=== PATIENT | female | born 1985 | race African-American/Black ===

== ENCOUNTER 2020-12-15 14:31 | Emergency (ER) | payer OTHER ==
[~2020-12-15] VITALS: Ht 182.9 cm; Wt 75.0 kg
--- NOTE | 2020-12-15 15:02 | PHYS DOC ---
Past History Past Medical History: No Pertinent History Past Surgical History: Other Additional Past Surgical Histo: LEFT AND RIGHT ACL Alcohol Use: None General Adult EDM: Chief Complaint: KNEE INJURY HPI: HPI: 34-year-old female presents via EMS with right knee injury. The patient states that she believes the her knee dislocated. She did was stand up and start to walk and turn to the right. Her knee felt like it popped out and she collapsed to the floor. She is not sure if her patella dislocated or if it was the knee joint itself. The patient has had this happen a few times since having her ACL replaced in 2009. It is always when she is turning to the right. 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 Her colleagues to help get her to her feet before EMS arrived and she felt like that is when it went back in place. She has not had Ortho follow-up on MRI since 2010. She was able to complete in [employer] physical fitness test yesterday while wearing her brace. She was not wearing her brace today. She denies any other injuries or complaints at this time. Review of Systems: Review of Systems: Constitutional: Denies fever or chills Eyes: Denies change in visual acuity HENT: Denies nasal congestion or sore throat Respiratory: Denies cough or shortness of breath Cardiovascular: Denies chest pain or edema GI: Denies abdominal pain, nausea, vomiting, bloody stools or diarrhea : Denies dysuria Musculoskeletal: Right knee pain Integument: Denies rash Neurologic: Denies headache, focal weakness or sensory changes Endocrine: Denies polyuria or polydipsia Lymphatic: Denies swollen glands Psychiatric: Denies depression or anxiety Allergies: Allergies: Allergies Coded Allergies Type Severity Reaction Last Updated Verified No Known Drug Allergies 12/15/20 No Physical Exam: PE: Constitutional: Well developed, well nourished, no acute distress, non-toxic appearance. [] HENT: Normocephalic, atraumatic, bilateral external ears normal, oropharynx moist, no oral exudates, nose normal. [] Eyes: PERRLA, EOMI, conjunctiva normal, no discharge. [] Neck: Normal range of motion, no tenderness, supple, no stridor. [] Cardiovascular:Heart rate regular rhythm, no murmur [] Lungs & Thorax: Bilateral breath sounds clear to auscultation [] Abdomen: Bowel sounds normal, soft, no tenderness, no masses, no pulsatile masses. [] Skin: Warm, dry, no erythema, no rash. [] Back: No tenderness, no CVA tenderness. [] Extremities: Swelling of the right knee, tenderness along the medial collateral ligament. Anterior and posterior drawer deferred due to pain. [] Neurologic: Alert and oriented X 3, normal motor function, normal sensory function, no focal deficits noted. [] Psychologic: Affect normal, judgement normal, mood normal. [] Current Patient Data: Vital Signs: Vital Signs Date Time Temp Pulse Resp B/P (MAP) Pulse Ox O2 Delivery O2 Flow Rate FiO2 12/15/20 14:35 98.1 68 20 129/87 (101) 100 Room Air EKG: EKG: [] Radiology/Procedures: Radiology/Procedures: [] Impressions: EXAM: Right knee, 4 views. HISTORY: Pain. COMPARISON: None. FINDINGS: 4 views of the right knee are obtained. There are findings consistent with anterior cruciate ligament surgery. There is no fracture, dislocation or subluxation. There is no joint effusion. IMPRESSION: 1. Findings consistent with ACL repair. 2. No acute osseous finding. Electronically signed by: Mery Oliveira MD (12/15/2020 3:15 PM) [id number] DICTATED AND SIGNED BY: MERY OLIVEIRA MD DATE: 12/15/20 1514 CC: CARMEN ELLINGTON DO ~MTH0 0 Heart Score: C/O Chest Pain: N/A Risk Factors: Risk Factors: DM, Current or recent (<one month) smoker, HTN, HLP, family history of CAD, obesity. Risk Scores: Score 0 - 3: 2.5% MACE over next 6 weeks - Discharge Home Score 4 - 6: 20.3% MACE over next 6 weeks - Admit for Clinical Observation Score 7 - 10: 72.7% MACE over next 6 weeks - Early Invasive Strategies Course & Med Decision Making: Course & Med Decision Making Pertinent Labs and Imaging studies reviewed. (See chart for details) Patient's x-ray is negative for acute findings. I have discussed with the patient that she should follow-up with orthopedics and have further evaluation of this knee. She has had a significant repair in the past and no follow-up imaging in several years. Given the fact that she has had several of these episodes, I believe repeat evaluation by an expert is warranted. At the least I suspect she has a medial collateral ligament strain. I cannot confirm or deny that she is having some part of her joint dislocate and relocate. I have offered the patient pain medication, but she is very hesitant to use narcotics as she is a single mom. She is stable for discharge at this time. [] Yosion Disclaimer: Shell Disclaimer: This electronic medical record was generated, in whole or in part, using a voice recognition dictation system. Departure Departure: Impression: Primary Impression: Medial collateral ligament sprain of knee Qualified Codes: S83.411A - Sprain of medial collateral ligament of right knee, initial encounter Disposition: HOME / SELF CARE / HOMELESS Condition: STABLE Patient Instructions: Medial Collateral Knee Ligament Sprain with Phase I [facility] CARMEN ELLINGTON DO December 15, 2020 15:02
--- NOTE | 2020-12-15 15:17 | RAD ---
EXAM: Right knee, 4 views. HISTORY: Pain. COMPARISON: None. FINDINGS: 4 views of the right knee are obtained. There are findings consistent with anterior cruciat e ligament surgery. There is no fracture, dislocation or subluxation. There is no joint effusion. IMPRESSION: 1. Findings consistent with ACL repair. 2. No acute osseous finding. Electronically signed by: Mery Oliveira MD (12/15/2020 3:15 PM) [id number]
[2020-12-15 16:02] VITALS: BP 131/89
[2020-12-15] MEDS ORDERED: IBUP800T19 PO (16:09)
== END 2020-12-15 16:03 | disposition home or self-care (01) ==
LOC: ER 14:31
DX: S83.411A Sprain of medial collateral ligament of right knee, initial encounter (principal); X50.9XXA Other and unspecified overexertion or strenuous movements or postures, initial encounter; Y93.01 Activity, walking, marching and hiking; Y92.89 Other specified places as the place of occurrence of the external cause; Y99.8 Other external cause status
CPT/HCPCS: 29505; 73564; 99283